=== PATIENT | female | born 2000 | race Caucasian/White ===

== ENCOUNTER 2023-07-03 14:46 | Emergency (ER) | payer OTHER, SELFPAY ==
[2023-07-03 14:48] VITALS: BP 112/56; PULSE 86; RESP 16; TEMP 36.9; O2SAT 98; BMI 28.3
--- NOTE | 2023-07-03 15:11 | CT_ITS ---
FINAL REPORT CLINICAL HISTORY: severe generalized abd pain; recent ovarian tumor FINDINGS: CT OF THE ABDOMEN AND PELVIS WITH CONTRAST Axial CT images of the abdomen and pelvis were obtained after the administration of iv contrast. Coronal reformatted images were also obtained and reviewed.This study was performed with techniques to keep radiation doses as low as reasonably achievable (ALARA). Individualized dose reduction techniques using automated exposure control or adjustment of mA and/or kV according to the patient's size were employed. Abdomen: The lung bases are clear. The heart is normal in size. The liver has an unremarkable appearance, without evidence of mass or biliary ductal dilatation. There is mild nonspecific gallbladder wall thickening. The spleen is unremarkable. No adrenal mass is present. The pancreas has an unremarkable appearance. The kidneys are normal, without evidence of mass or hydronephrosis. The aorta is normal in caliber. There is no free fluid or adenopathy. No mass or abnormal fluid collection is seen. Pelvis: The appendix is normal. The urinary bladder is unremarkable. There is a 3.2 cm, presumed, left ovarian cyst. Postoperative changes are seen in the pelvis. There is a small amount of free fluid which may be physiologic or reactive. There is no adenopathy. There is no evidence of bowel obstruction. IMPRESSION: No evidence of acute intra-abdominal process. Reviewed, Interpreted and Dictated by Rojas Hutson III, MD Transcribed by Bre Pepper Authenticated and [facility]
--- OUTSIDE RECORDS SUMMARY | 2023-07-03 15:25 | XMS_ITS | Continuity of Care Document ---
Author Name Unknown Address [address] [place], [place] [id number] Organization [facility] Phone Care Team Providers Care Developmental Services Worker Name Role Phone LOPEZ, KAUSHIK E Unavailable Unavailable LOPEZ, KAUSHIK E Admitting Unavailable LOPEZ, KAUSHIK E Primary Attending Unavailable NO, FAMILY P Primary Care ALLERGIES AND ADVERSE REACTIONS ALLERGIES AND ADVERSE REACTIONS Code System Allergy Substance Adverse Reaction Date Reaction (Severity) Comment Status Reported By Updated By No Known Allergies [id number] on May 21, 2023 6:02:31 AM [facility] FAMILY HISTORY RELATION: Father Status: LIVING SNOMED-CT Diagnosis Age At Onset [id number] Diabetes mellitus MEDICATIONS HOME MEDICATIONS Status RXNORM ND Medication Dose Route Frequency Dates Comments Reported By Updated By Active FreeT extMe d NORCO 5-325 MG 1.0 TAB BY MOUTH Q6HPRN Last Dose: PAIN SCALE 4 - 6 [id number] on May 21, 2023 6:02:32 AM [facility] Active 548496 14692 18845 0 polyethylene glycol (MIRALAX) 3350 PK 17.0 GM BY MOUTH DAILYPRN Last Dose: FOR CONSTIPATI ON [id number] on May 21, 2023 6:02:32 AM [facility] DISCHARGE MEDICATIONS Status RXNORM NDC Medication Dose Route Frequency Dates Comments Physician Updated By No Discharge Medication Info rmation Available INPATIENT MEDICATIONS Status RXNORM ND Medication Dose Route Frequency Rat e Quantity Dates Comments Physician Updated By Shawna inued [phone] ACETAMINOPH EN EXTRA STRENGTH 500 MG TABS 500.0 MG BY MOUTH ONE TIME ONLY Start: May 21, 2023 6:40:0 0 AM [place] End: May 21, 2023 6:15:0 0 AM [facility] LOPEZ Hancock MD INTERFAC ED on May 21, 2023 6:10:00 AM [facility] Shawna inued [id number] 4458 4072 801 fluconazole (DIFLUCAN) 100 MG TABS 100.0 MG BY MOUTH ONE TIME ONLY Start: May 21, 2023 6:40:0 0 AM UTC End: May 21, 2023 6:15:0 0 AM UTC LOPEZ Hancock MD INTERF ED on May 21, 2023 6:10:00 AM [place] SOCIAL HISTORY SOCIAL HISTORY SNOMED-CT Social History Element Description Effective Dates Offered Cessation Comment UpdatedBy [id number] Historical Tobacco smoking status Never Smoked [id number] on April 03, 2023 7:45:20 AM [place] SOCIAL HISTORY - Gender Sex: Female SOCIAL HISTORY - Status : status i nformation is not available Intention in Next Year: intention information is not available SOCIAL HISTORY - Sexual Behavior Sexual Orientation Gender Identity SNOMED-CT Description SNO MED -CT Description Activity Level No of Partners Partner Type UpdatedBy Information is not available VITAL SIGNS PATIENT VITAL SIGNS This section displays the mo st recent value for each vital sign as of May 21, 2023 7:15:05 AM [facility] Loinc Code Vital Sign Activity Date Result Updated By 8310-5 Body temperature May 21, 2023 5:51:00 AM UTC 98.1 [degF] [id number] on May 21, 2023 5:58:20 AM [place] 8462-4 Diastolic blood pressure May 21, 2023 5:51:00 AM UTC 71.0 mm[Hg] [id number] on May 21, 2023 5:58:20 AM UT 8867-4 Heart rate May 21, 2023 5:51:00 AM UTC 86 /min [id number] on May 21, 2023 5:58:20 AM [facility] 51024-6 Oxygen saturation in Arterial blood by Pulse oximetry May 21, 2023 5:51:00 AM UTC 100.0 % [id number] on May 21, 2023 5:58:20 AM [place] 9279-1 Respiratory rate May 21, 2023 5:51:00 AM UTC 16 /min [id number] on May 21, 2023 5:58:20 AM UT 8480-6 Systolic blood pressure May 21, 2023 5:51:00 AM UTC 115.0 mm[Hg] [id number] on May 21, 2023 5:58:20 AM UT PEDIATRIC GROWTH CHART - VITAL SIGNS This section displays Head C ircumference Percentile, Weight for Length Percentile and BMI Percentile Loinc Code Pediatric Measure Age (Months) Result Updat ed By No Pediatric Growth Chart Pe rcentile Information Available. HEALTH CONCERNS Problems Concern Status Health Concern problem infor mation not available. Smoking Status Status Years Used Consumed packs p er day Health Concern smoking histo ry information not available. Family History Concern Status Health Concern family histor y information not available. ENCOUNTERS ENCOUNTER INFORMATION Reason for Visit POST SURGICAL PROBLE M Admission May 21, 2023 5:41:[address] [address] Discharge May 21, 2023 6:15:00 AM UT DIS CHARGED TO HOME OR SELF CARE ENCOUNTER DIAGNOSES Notes information is not annette ilable. Code System Diagnosis Onset Date Diagnosis information is not available. ABSTRACT DIAGNOSES Code System Diagnosis Updated By Abstract Diagnosis informati on is not available. CARE TEAM Care Developmental Services Worker Role KAUSHIK MARROQUIN Referring KAUSHIK MARROQUIN Admitting KAUSHIK MARROQUIN Primary Attending FAMILY NO Primary Care CARE TEAM CARE hvac controls technician Role on Team Status Start Date End Date Update d By LPOEZ Hancock MD Referring normal May 20 5:47:39 AM UT May 21, 2023 6:15:00 AM UT [id number] on May 21, 2023 5:47:39 AM UT LOPEZ Hancock MD Attending normal May 20 5:47:39 AM UT May 21, 2023 6:15:00 AM UT [id number] on May 21, 2023 5:47:39 AM UT LOPEZ Hancock MD Admitting normal May 20 5:47:39 AM UT May 21, 2023 6:15:00 AM UT [id number] on May 21, 2023 5:47:39 AM [facility] NO FAMILY PHYSICIAN PCP normal May 21, 2023 5:41:23 AM UT May 21, 2023 6:15:00 AM UT [id number] on May 21, 2023 5:47:39 AM [facility]
--- OUTSIDE RECORDS SUMMARY | 2023-07-03 15:25 | XMS_ITS | Continuity of Care Document ---
Author Name Unknown Address [address] [place] [phone] Organization [facility] Phone Care Team Providers Care Associate Embalmer/Funeral Director Name Role Phone GREGG ALONSO Admitting NO, FAMILY P Primary Care GREGG ALONSO Primary Attending GREGG ALONSO Unavailable [phone] ALLERGIES AND ADVERSE REACTIONS ALLERGIES AND ADVERSE REACTIONS Code System Allergy Substance Adverse Reaction Date Reaction (Severity) Comment Status Reported By Updated By No Known Allergies [id number] on May 29, 2023 3:14:58 PM UT FAMILY HISTORY RELATION: Father Status: LIVING SNOMED-CT Diagnosis Age At Onset [id number] Diabetes mellitus RESULTS Patient: KIARRA ANN Date of : [birth year] LABORATORY RESULTS ORDER 100: STREP GROUP A EIA RAPID SCREEN (LOINC: 6558-1) ORDER DATE: May 29, 2023 3:21:00 PM UTC Specimen Source: Swab Specimen Type: Swab PERFORMING LAB: [address] [id number] Result Comment: Final Result Date: May 29, 2023 3:35:00 PM UTC (TECH: MRB) LOINC TEST FLAG RESULT REFERENCE RANGE UPDA CHANTELL BY 6558-1 Streptococcus pyogen es Ag [Presence] in Unspecified specimen by Immunoassay N NEGATIVE NEGATIVE May 3:35:00 PM UTC (TECH: MRB) 98152-2 Internal control result N PASS PASS May 29, 2023 3:35:00 PM UTC (TECH: MRB) LABORATORY NARRATIVE RESULTS Information is not available RADIOLOGY RESULTS Information is not available PATHOLOGY NARRATIVE RESULTS Information is not available MICROBIOLOGY RESULTS No Micro Labs/Results Exist for Patient BLOOD ADMIN RESULTS Information is not available TREATMENT PLAN DISCHARGE MEDICATIONS Status RXNORM Medication Dose Route Frequency Dates Comments U pdated By Patient discharge medication information is not available. PATIENT OPEN ORDERS Code System Description Frequency Occurrences Priority Start Date Ordering Physician Updated By 626-2 LOINC Bacteria identified in Throat by Culture ONE TIME 0 Routine May 29, 2023 3:35:0 0 PM UT CELESTE Morse MD DSRULE on May 29, 2023 3:35:00 PM [facility] SCHEDULED PROCEDURES Code System Description Status Scheduled Date Upd ated By Patient scheduled procedure information is not available. MEDICATIONS HOME MEDICATIONS Status RXNORM NDC Medication Dose Route Frequency Dates Comments Reported By Updated By Active BraydonT extMe d NORCO 5-325 MG 1.0 TAB BY MOUTH Q6HPRN Last Dose: PAIN SCALE 4 - 6 [id number] on May 29, 2023 3:14:59 PM UT Active 470109 77573 62734 0 polyethylene glycol (MIRALAX) 3350 PK 17.0 GM BY MOUTH DAILYPRN Last Dose: FOR CONSTIPATI ON [id number] on May 29, 2023 3:15:01 PM UT DISCHARGE MEDICATIONS Status RXNORM NDC Medication Dose Route Frequency Dates Comments Physician Updated By No Discharge Medication Info rmation Available INPATIENT MEDICATIONS Status RXNORM NDC Medication Dose Route Frequency Rat e Quantity Dates Comments Physician Updated By No Inpatient Medication Info rmation Available SOCIAL HISTORY SOCIAL HISTORY SNOMED-CT Social History Element Description Effective Dates Offered Cessation Comment UpdatedBy [id number] Historical Tobacco smoking status Never Smoked [id number] on April 03, 2023 7:45:20 AM [facility] SOCIAL HISTORY - Gender Sex: Female SOCIAL [...] for each vital sign as of May 29, 2023 5:33:04 PM [facility] Loinc Code Vital Sign Activity Date Result Updated By 8310-5 Body temperature May 29, 2023 3:01:00 PM UT 98.7 [degF] [id number] on May 29, 2023 3:11:55 PM UT 8462-4 Diastolic blood pressure May 29, 2023 4:32:00 PM UT 63.0 mm[Hg] [id number] on May 29, 2023 4:33:26 PM [facility] 8867-4 Heart rate May 29, 2023 4:32:00 PM UTC 80 /min [id number] on May 29, 2023 4:33:26 PM [facility] 27768-4 Oxygen saturation in Arterial blood by Pulse oximetry May 29, 2023 4:32:00 PM UTC 99.0 % [id number] on May 29, 2023 4:33:26 PM [facility] 9279-1 Respiratory rate May 29, 2023 4:32:00 PM UTC 16 /min [id number] on May 29, 2023 4:33:26 PM UT 8480-6 Systolic blood pressure May 4:32:00 PM UTC 100.0 mm[Hg] [id number] on May 29, 2023 4:33:26 PM [facility] PEDIATRIC GROWTH CHART - VITAL SIGNS This [...] available. ENCOUNTERS ENCOUNTER INFORMATION Reason for Visit SORE THROAT Admission May 29, 2023 2:51:[address] [address] Discharge May 29, 2023 4:33:00 PM [facility] DI SCHARGED TO HOME OR SELF CARE ENCOUNTER DIAGNOSES Notes information is not annette ilable. Code System Diagnosis Onset Date Diagnosis information is not available. ABSTRACT DIAGNOSES Code System Diagnosis Updated By Abstract Diagnosis informati on is not available. CARE TEAM Care Associate Embalmer/Funeral Director Role GREGG ALONSO Admitting FAMILY NO Primary Care GREGG ALONSO Primary Attending GREGG ALONSO Referring CARE TEAM CARE arts administrator or manager Role on Team Status Start Date End Date Update d By CELESTE ALMANZA Referring normal May 29, 2023 3:25:25 PM UT May 29, 2023 4:33:00 PM [facility] [id number] on May 29, 2023 3:25:25 PM [facility] CELESTE ALMANZA Attending normal May 29, 2023 3:25:25 PM UT May 29, 2023 4:33:00 PM [facility] [id number] on May 29, 2023 3:25:25 PM [facility] CELESTE ALMANZA Admitting normal May 29, 2023 3:25:24 PM [facility] May 29, 2023 4:33:00 PM [facility] [id number] on May 29, 2023 3:25:25 PM [facility] NO FAMILY PHYSICIAN PCP normal May 2:51:29 PM [facility] May 29, 2023 4:33:00 PM [facility] [id number] on May 29, 2023 3:25:25 PM [facility]
--- OUTSIDE RECORDS SUMMARY | 2023-07-03 15:25 | XMS_ITS | Continuity of Care Document ---
Author Name Unknown Address [address], [place] [id number] Organization [facility] Phone Care Team Providers Care Assembly Instructions Writer Name Role Phone LOPEZ, KAUSHIK E Unavailable Unavailable LOPEZ, KAUSHIK E Admitting Unavailable LOPEZ, KAUSHIK E Primary Attending Unavailable NO, FAMILY P Primary Care ALLERGIES AND ADVERSE REACTIONS ALLERGIES AND ADVERSE REACTIONS Code System Allergy Substance Adverse Reaction Date Reaction (Severity) Comment Status Reported By Updated By No Known Allergies [id number] on May 21, 2023 6:02:31 AM [facility] FAMILY HISTORY RELATION: Father Status: LIVING SNOMED-CT Diagnosis Age At Onset [id number] Diabetes mellitus MEDICATIONS HOME MEDICATIONS Status RXNORM ND Medication Dose Route Frequency Dates Comments Reported By Updated By Active FreeT extMe d NORCO 5-325 MG 1.0 TAB BY MOUTH Q6HPRN Last Dose: PAIN SCALE 4 - 6 [id number] on May 21, 2023 6:02:32 AM [facility] Active 440825 51538 56679 0 polyethylene glycol (MIRALAX) 3350 [address] 17.0 GM BY MOUTH DAILYPRN Last Dose: FOR CONSTIPATI ON [id number] on May 21, 2023 6:02:32 AM [facility] DISCHARGE MEDICATIONS Status RXNORM NDC Medication Dose Route Frequency Dates Comments Physician Updated By No Discharge Medication Info rmation Available INPATIENT MEDICATIONS Status RXNORM ND Medication Dose Route Frequency Rat e Quantity Dates Comments Physician Updated By Shawna inued [phone] ACETAMINOPH EN EXTRA STRENGTH 500 MG TABS 500.0 MG BY MOUTH ONE TIME ONLY Start: May 21, 2023 6:40:0 0 AM UT End: May 21, 2023 6:15:0 0 AM [facility] LOPEZ Hancock MD INTERFAC ED on May 21, 2023 6:10:00 AM [facility] Shawna inued [id number] 2253 4072 801 fluconazole (DIFLUCAN) 100 MG TABS 100.0 MG BY MOUTH ONE TIME ONLY Start: May 21, 2023 6:40:0 0 AM UTC End: May 21, 2023 6:15:0 0 AM UTC LOPEZ Hancock MD INTERF ED on May 21, 2023 6:10:00 AM UT SOCIAL HISTORY SOCIAL HISTORY SNOMED-CT Social History Element Description Effective Dates Offered Cessation Comment UpdatedBy [id number] Historical Tobacco smoking status Never Smoked [id number] on April 03, 2023 7:45:20 AM UT [...] for each vital sign as of May 23, 2023 3:46:37 PM UT Loinc Code Vital Sign Activity Date Result Updated By 8310-5 Body temperature May 21, 2023 5:51:08 AM UTC 98.1 [degF] [id number] on May 22, 2023 6:15:24 AM UT 8462-4 Diastolic blood pressure May 21, 2023 5:51:08 AM UTC 71.0 mm[Hg] [id number] on May 22, 2023 6:15:24 AM UTC 8867-4 Heart rate May 21, 2023 5:51:08 AM UTC 86 /min [id number] on May 22, 2023 6:15:[place] [address]-8 Oxygen saturation in Arterial blood by Pulse oximetry May 21, 2023 5:51:08 AM UTC 100.0 % [id number] on May 22, 2023 6:15:24 AM UT 9279-1 Respiratory rate May 21, 2023 5:51:08 AM UTC 16 /min [id number] on May 22, 2023 6:15:24 AM UT 8480-6 Systolic blood pressure May 21, 2023 5:51:08 AM UTC 115.0 mm[Hg] [id number] on May 22, 2023 6:15:24 AM UT PEDIATRIC GROWTH CHART - VITAL [...] Admission May 21, 2023 5:41:[address] [address] Discharge May 21, 2023 6:15:00 AM UT DIS CHARGED TO HOME OR SELF CARE ENCOUNTER DIAGNOSES Notes information is not annette ilable. Code System Diagnosis Onset Date Diagnosis information is not available. ABSTRACT DIAGNOSES Code System Diagnosis Updated By R21 ICD10 RASH AND OTHER N ONSPECIFIC SKIN ERUPTION [id number] on May 23, 2023 3:46:18 PM UT B37.2 ICD10 CANDIDIASIS OF SKIN AND NAIL [id number] on May 23, 2023 3:46:18 PM UT F17.290 ICD10 NICOTINE DEPENDE NCE, OTHER TOBACCO PRODUCT, UNCOMPLICATED [id number] on May 23, 2023 3:46:18 PM UT Z98.890 ICD10 OTHER SPECIFIED POSTPROCEDUR AL STATES [id number] on May 23, 2023 3:46:18 PM UT CARE TEAM Care Assembly Instructions Writer Role KAUSHIK MARROQUIN Referring KAUSHIK MARROQUIN Admitting KAUSHIK MARROQUIN Primary Attending FAMILY NO Primary Care CARE TEAM CARE gang supervisor Role on Team Status Start Date End Date Update d By LOPEZ Hancock MD Referring normal May 20 5:47:39 AM UT May 21, 2023 4:00:00 AM UT [id number] on May 21, 2023 5:47:39 AM [facility] LOPEZ Hancock MD Attending normal May 20 5:47:39 AM UT May 21, 2023 4:00:00 AM UT [id number] on May 21, 2023 5:47:39 AM [facility] LOPEZ Hancock MD Admitting normal May 20 5:47:39 AM UT May 21, 2023 4:00:00 AM UT [id number] on May 21, 2023 5:47:39 AM UTC NO FAMILY PHYSICIAN PCP normal May 21, 2023 5:41:23 AM [facility] May 21, 2023 4:00:00 AM [facility] [id number] on May 21, 2023 5:47:39 AM [facility]
--- OUTSIDE RECORDS SUMMARY | 2023-07-03 15:25 | XMS_ITS | Continuity of Care Document ---
Author Name Unknown Address [address] [place] [phone] Organization [facility] Phone Care Team Providers Care Internet Designer Name Role Phone GREGG ALONSO Admitting [phone] NO, FAMILY P Primary Care GREGG ALONSO Primary Attending GREGG ALONSO Unavailable ALLERGIES AND ADVERSE REACTIONS ALLERGIES AND ADVERSE REACTIONS Code System Allergy Substance Adverse Reaction Date Reaction (Severity) Comment Status Reported By Updated By No Known Allergies [id number] on May 29, 2023 3:14:58 PM UTC FAMILY HISTORY RELATION: Father Status: LIVING SNOMED-CT Diagnosis Age At Onset [id number] Diabetes mellitus RESULTS Patient: KIARRA ANN Date of : [birth year] LABORATORY RESULTS ORDER 100: STREP GROUP A EIA RAPID SCREEN (LOINC: 6558-1) ORDER DATE: May 29, 2023 3:21:00 PM UTC Specimen Source: Swab Specimen Type: Swab PERFORMING LAB: [address] [id number] Result Comment: Final Result Date: May 29, 2023 3:35:00 PM UTC (TECH: MRB) LOINC TEST FLAG RESULT REFERENCE RANGE UPDA CHANTELL BY 6558-1 Streptococcus pyogen es Ag [Presence] in Unspecified specimen by Immunoassay N NEGATIVE NEGATIVE May 3:35:00 PM UTC (TECH: MRB) 28398-6 Internal control result N PASS PASS May 29, 2023 3:35:00 PM UTC (TECH: MRB) LABORATORY NARRATIVE RESULTS Information is not available RADIOLOGY RESULTS Information is not available PATHOLOGY NARRATIVE RESULTS Information is not available MICROBIOLOGY RESULTS ORDER 200: CULTURE THROAT (L OINC: 626-2) ORDER DATE: May 29, 2023 3:35:00 PM UTC PERFORMING LAB: [facility] [address] [facility] [id number] Specimen Source: Specimen Type: Result Comment: June 01, 2023 11:01:00 AM UTC (TECH: Instructure) Scant alpha hemolytic strep colony Final Result Date: June 01, 2023 11:09:00 AM UTC (TECH: opentabsM) ISOLATE #1 Organism: Streptococcus pneumoniae Result Comment: Final Result Date: June 01, 2023 11:09:00 AM UTC (TECH: Instructure) [facility] ANTIBIOTIC ABBY TYPE VAL[place] B Y 89753-7 Amox/K Clav 0.25 Systemic S May 11:09:00 AM UTC (TECH: Instructure) 36-4 Azithromycin <= 0.25 Systemic S May 182023 11:09:00 AM UTC (TECH: Instructure) 68780-4 Cefaclor <= 0.5 Systemic S June 01, 2023 11:09:00 AM UTC (TECH: Instructure) 43951-6 Cefepime <= 0.25 Systemic S June 01, 2023 11:09:00 AM UTC (TECH: Instructure) 108-1 Cefotaxime <= 0.25 Systemic S June 01, 2023 11:09:00 AM UTC (TECH: Instructure) 67557-4 Ceftriaxone <= 0.25 Systemic S May 11:09:00 AM UTC (TECH: Instructure) 37263-4 Cefuroxime <= 0.25 Systemic S June 01, 2023 11:09:00 AM UTC (TECH: Instructure) 41459-8 Chloramphenicol <= 1.0 Systemic S Apr2023 11:09:00 AM UTC (TECH: Instructure) 04330-0 Clindamycin <= 0.06 Systemic S May 11:09:00 AM UTC (TECH: Instructure) 11835-9 Erythromycin <= 0.06 Systemic S May 182023 11:09:00 AM UTC (TECH: Instructure) 41309-2 Levofloxacin <= 0.25 Systemic S May 182023 11:09:00 AM UTC (TECH: opentabsM) Meropenem <= 0.06 Systemic S June 01, 2023 11:09:00 AM UTC (TECH: Instructure) 60462-1 Penicillin <= 0.03 Systemic S June 01, 2023 11:09:00 AM UT (TECH: Instructure) 66808-9 Tetracycline <= 0.5 Systemic S May 182023 11:09:00 AM UT (TECH: Instructure) 516-5 Trimeth/Sulfa 0.7 Systemic S June 01, 2023 11:09:00 AM UT (TECH: Instructure) 06103-0 Vancomycin <= 0.12 Systemic S June 01, 2023 11:09:00 AM UT (TECH: Instructure) BLOOD ADMIN RESULTS Information is not available MEDICATIONS HOME MEDICATIONS Status RXNORM NDC Medication Dose Route Frequency Dates Comments Reported By Updated By Anabella eduardo NORCO 5-325 MG 1.0 TAB BY MOUTH Q6HPRN Last Dose: PAIN SCALE 4 - 6 [id number] on May 29, 2023 3:14:59 PM UT Active 214755 30335 62998 0 polyethylene glycol (MIRALAX) 3350 PK 17.0 GM BY MOUTH DAILYPRN Last Dose: FOR CONSTIPATI ON [id number] on May 29, 2023 3:15:01 PM UT [...] Description Effective Dates Offered Cessation Comment UpdatedBy [id number] Historical Tobacco smoking status Never Smoked [id number] on April 03, 2023 7:45:20 AM UT [...] value for each vital sign as of June 02, 2023 11:33:42 AM UT Loinc Code Vital Sign Activity Date Result Updated By 8310-5 Body temperature May 29, 2023 3:01:37 PM UT 98.7 [degF] [id number] on May 30, 2023 4:33:53 PM UTC 54320-2 Body weight Measured May 29 4:33:55 PM UTC 80.739 kg (178.0 lb) [id number] on May 30, 2023 4:33:55 PM UTC 8462-4 Diastolic blood pressure May 29, 2023 4:32:46 PM UTC 63.0 mm[Hg] [id number] on May 30, 2023 4:33:55 PM UTC 8867-4 Heart rate May 29, 2023 4:32:46 PM UTC 80 /min [id number] on May 30, 2023 4:33:55 PM UTC 08158-6 Oxygen saturation in Arterial blood by Pulse oximetry May 29, 2023 4:32:46 PM UTC 99.0 % [id number] on May 30, 2023 4:33:55 PM UTC 9279-1 Respiratory rate May 29, 2023 4:32:46 PM UTC 16 /min [id number] on May 30, 2023 4:33:55 PM UTC 8480-6 Systolic blood pressure May 29, 2023 4:32:46 PM UTC 100.0 mm[Hg] [id number] on May 30, 2023 4:33:55 PM UTC PEDIATRIC GROWTH CHART - VITAL SIGNS This [...] THROAT Admission May 29, 2023 2:51:00 PM UTC [address] [id number] Discharge May 29, 2023 4:33:00 PM UTC DI SCHARGED TO HOME OR SELF CARE ENCOUNTER DIAGNOSES Notes information is not annette ilable. Code System Diagnosis Onset Date Diagnosis information is not available. ABSTRACT DIAGNOSES Code System Diagnosis Updated By [email or web address] ICD10 ACUTE PHARYNGITIS, UNSPECIFI ED [id number] on June 02, 2023 11:33:18 AM UTC R09.89 ICD10 OTHER SPECIFIED SYMPTOMS AND SIGNS INVOLVING THE CIRCULATORY AND RESPIRATORY SYSTEMS [id number] on June 02, 2023 11:33:18 AM UT J06.0 ICD10 ACUTE LARYNGOPHARYNGITIS PQE 7261 on June 02, 2023 11:33:18 AM [facility] F17.210 ICD10 NICOTINE DEPENDE NCE, CIGARETTES, UNCOMPLICATED [id number] on June 02, 2023 11:33:18 AM [place] E66.9 ICD10 OBESITY, UNSPECIFIED [id number] on June 02, 2023 11:33:18 AM [facility] Z68.31 ICD10 BODY MASS INDEX [BMI] 31.0-3 1.9, ADULT [id number] on June 02, 2023 11:33:18 AM [facility] CARE TEAM Care Internet Designer Role GREGG ALONSO Admitting FAMILY NO Primary Care GREGG ALONSO Primary Attending GREGG ALONSO Referring CARE TEAM CARE cloth boil off machine operator Role on Team Status Start Date End Date Update d By CELESTE ALMANZA Referring normal May 29, 2023 3:25:25 PM UT May 29, 2023 4:00:00 AM UT [id number] on May 29, 2023 3:25:25 PM [facility] CELESTE ALMANZA Attending normal May 29, 2023 3:25:25 PM [facility] May 29, 2023 4:00:00 AM UT [id number] on May 29, 2023 3:25:25 PM [facility] CELESTE ALMANZA Admitting normal May 29, 2023 3:25:24 PM [facility] May 29, 2023 4:00:00 AM UT [id number] on May 29, 2023 3:25:25 PM [facility] NO FAMILY PHYSICIAN PCP normal May 2:51:29 PM UT May 29, 2023 4:00:00 AM UT [id number] on May 29, 2023 3:25:25 PM [facility]
[2023-07-03 15:26] LABS: Basophils # 0.1 K/mm3 (0-0.2); Basophils % 1.2 % (0.1-2.0); Eosinophils % 0.9 % (0.1-12.0); Lymphocytes # 2.4 K/mm3 (0.7-4.5); Lymphocytes % 47.6 % (10-50); Mean Corpuscular HGB Conc 31.4 g/dL (31.8-35.4); Mean Corpuscular Hemoglobin 25.1 pg (27.0-31.2); Mean Corpuscular Volume 79.8 fl (81-99); Mean Platelet Volume 8.2 fl (7.4-10.4); Monocytes # 0.3 K/mm3 (0.1-1.0); Neutrophils # 2.2 K/mm3 (1.8-7.8); Neutrophils % 44.3 % (37.0-80.0); Platelet Count 355 K/mm3 (142-424); Red Blood Count 4.38 M/mm3 (4.20-5.40); Red Cell Distribution Width 16.7 % (11.5-17.5)
[2023-07-03 15:29] LABS: Microscopic, Urine URINE MICROSCOPIC (MICROSCOPIC)
[2023-07-03 15:37] LABS: Appearance,Urine CLEAR (Clear); Bilirubin,Urine Negative (Negative); Blood, Urine 2+ (Negative); Color,Urine YELLOW (Yellow); Glucose,Urine (UA) Negative (Negative); Ketones,Urine Negative (Negative); Leukocyte Esterase,Urine Negative (Negative); Nitrate,Urine Negative (Negative); PH,Urine 6.5 (5.0-8.5); Protein,Urine Negative (Negative)
--- NOTE | 2023-07-03 15:38 | ED_ITS ---
Discharge Plan Disposition Patient Disposition: Home, Self-Care Condition: Good Prescriptions Prescriptions: New nystatin 100,000 unit/gram cream 1 applic topical BID Qty: 15 0RF sulfamethoxazole-trimethoprim [Bactrim DS] 800-160 mg tablet 1 tab PO BID 10 Days Qty: 20 0RF cephalexin 500 mg capsule 500 mg PO BID 10 Days Qty: 20 0RF Referrals Follow up/Referrals: Provider,Referral, [Primary Care Provider] - See instructions Activity Restrictions/Add. Instructions Additional Instructions/Restrictions: You were evaluated in the emergency department today. 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 Follow-up closely with your surgeon who performed the surgery so that we can assess your wound and make sure that it heals well. Return to the emergency department for new or worsening symptoms. Take Tylenol and ibuprofen at home as needed for pain. 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 She states that got worse today, and she had pain similar to the time that she went to the hospital for the second time. On medical record review, this was the time she went in with concern for peritonitis and she had an ex lap that did not demonstrate any concerns for bowel perforation. This is on review of medical records from [facility]. She states she is also had nausea, but no fevers, vomiting, changes in bowel movements, or other concerns. No urinary symptoms noted. 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 At that time, exam was reassuring and labs are reassuring as well. Related Data Previous Rx's Medication Instructions Recorded cephalexin 500 mg capsule 500 mg PO BID 10 days #20 caps 07/03/23 nystatin 100,000 unit/gram topical 1 applic topical BID #15 grams 07/03/23 cream sulfamethoxazole 800 1 tab PO BID 10 days #20 tabs 07/03/23 mg-trimethoprim 160 mg tablet (Bactrim DS) Allergies Allergy/AdvReac Type Severity Reaction Status Date / Time No Known Allergies Allergy Verified 07/03/23 17:52 [facility] Disclaimer: The information contained in this section may have been updated after the patient was seen, as this information can be updated by other users. Social History Smoking Status: Current some day smoker alcohol intake: never current occupational status: employed Travel in the last 8 weeks: None ROS Obtained: Yes All systems reviewed & no additional complaints except as documented Physical Exam General General appearance: alert and in no apparent distress Head Head exam: atraumatic and normocephalic Eye Eye exam: Present normal appearance, PERRL and EOMI ENT ENT exam: Present normal exam, normal oropharynx, mucous membranes moist and normal external ear exam Neck Neck exam: Present normal inspection, full ROM and trachea midline; Absent tenderness Chest Chest inspection: Present normal inspection and symmetric chest wall rise; Absent tenderness Respiratory Respiratory exam: Present normal lung sounds bilaterally; Absent respiratory distress, wheezes, stridor or accessory muscle use Cardiovascular Cardiovascular exam: Present regular rate and normal rhythm Abdominal Exam Abdominal exam: Present soft, tenderness (Generalized) and other (Umbilical moisture, skin irritation, and breakdown from a very tiny serous oozing area of her midline abdominal incision.); Absent distention, guarding, rebound or rigidity Extremities Exam Extremities exam: Present normal inspection, full ROM and normal capillary refill; Absent tenderness or edema Back Exam Back exam: Present normal inspection and full ROM; Absent tenderness Neurological Exam Neurological exam: Present alert, oriented X3, CN II-XII intact and normal gait; Absent motor sensory deficit Psychiatric Psychiatric exam: Present normal affect and normal mood Skin Skin exam: Present warm and dry Medical Decision Making Medical Records Medical records reviewed: Yes I reviewed the patient's medical records. Mc Inquiry Pt receiving controlled substance: No Vital Signs: 07/03/23 14:48 07/03/23 18:05 Temperature 98.4 F 97.9 F Temperature Source Oral Oral Pulse Rate 72 Pulse Rate [Right] 86 Respiratory Rate 16 14 Blood Pressure 107/62 L Blood Pressure [Right Arm] 112/56 L Blood Pressure Mean [Right Arm] 74 Blood Pressure Source Automatic Cuff Blood Pressure Source [Right Arm] Automatic Cuff Blood Pressure Position Sitting 02 Sat by Pulse Oximetry 98 Oxygen Delivery Method Room Air Room Air Lab Data Lab results reviewed: Yes I reviewed the patient's lab results. Lab Results 07/03/23 15:13: WBC 5.0, RBC 4.38, Hgb 11.0 L, Hct 35.0 L, MCV 79.8 L, MCH 25.1 L, MCHC 31.4 L, RDW 16.7, Plt Count 355, MPV 8.2, Neut % (Auto) 44.3, Lymph % (Auto) 47.6, [place] % (Auto) 6.0, Eos % (Auto) 0.9, Baso % (Auto) 1.2, Neut # (Auto) 2.2, Lymph # (Auto) 2.4, [place] # (Auto) 0.3, Eos # (Auto) 0.0, Baso # (Auto) 0.1, Sodium 139, Potassium 3.9, Chloride 106, Carbon Dioxide 27, Anion Gap 9.9, BUN 8, Creatinine 0.50 L, Estimated GFR 154, Est GFR ( Amer) 187, Glucose 84, Lactate 1.0, Calcium 9.0, Total Bilirubin 0.5, AST 32, ALT 46, Alkaline Phosphatase 80, Total Protein 8.3 H, Albumin 4.0, Globulin 4.3 H, A lbumin/Globulin Ratio 0.9 L, Lipase 57, Serum HCG, Qual Negative 07/03/23 15:22: Urine Color Yellow, Urine Appearance Clear, Urine pH 6.5, Ur Specific [place] 1.020, Urine Protein Negative, Urine Glucose (UA) Negative, Urine Ketones Negative, Urine Blood 2+, Urine Nitrate Negative, Urine Bilirubin Negative, Urine Urobilinogen 1.0, Ur Leukocyte Esterase Negative, Urine RBC 3-5, Urine WBC Occasional, Ur Squamous Epith Cells 3-5, Urine Bacteria Trace 07/03/23 15:13 07/03/23 15:13 Orders (Tests/Meds): ED MEDICATIONS Discontinued Medications Generic Name Dose Route Start Last Admin Trade Name Deyvi PRN Reason Stop Dose Admin Acetaminophen 1,000 mg 07/03/23 15:14 07/03/23 16:10 Acetaminophen 1,000mg/100ml Vial IV 07/03/23 15:15 1,000 mg ONCE ONE Administration Cephalexin HCl 500 mg 07/03/23 17:41 07/03/23 17:58 Cephalexin 500mg Capsule PO 07/03/23 17:42 500 mg ONCE ONE Administration Lactated Ringer's 1,000 mls @ 999 mls/hr 07/03/23 15:14 07/03/23 16:10 Lactated Ringer's 1000 Ml Bag IV 07/03/23 16:14 999 mls/hr .Q1H1M ONE Administration Iopamidol 75 ml 07/03/23 15:59 07/03/23 16:00 Iopamidol-370 (76%);100ml Bottle IV 07/03/23 16:00 75 ml ONCE ONE Administration Ketorolac Tromethamine 15 mg 07/03/23 15:14 07/03/23 16:10 Ketorolac 30mg/Ml Vial IV 07/03/23 15:15 15 mg ONCE ONE Administration Ondansetron HCl 4 mg 07/03/23 15:14 07/03/23 16:10 Ondansetron 4mg/2ml Vial IV 07/03/23 15:15 4 mg ONCE ONE Administration Sodium Chloride 10 ml 07/03/23 15:59 07/03/23 16:00 Sodium Chloride 0.9% 10ml Syr (Rad Only) IV 07/03/23 16:00 10 ml ONCE ONE Administration Trimethoprim/Sulfamethoxazole 1 each 07/03/23 17:41 07/03/23 17:58 Sulfa/Trimethoprim 1 Tablet PO 07/03/23 17:42 1 each ONCE ONE Administration ORDERS Category Date Time Status CT abdomen pelvis w con Stat Cat Scan 07/03/23 15:11 Completed Complete Blood Count Auto Diff Stat Lab 07/03/23 15:13 Completed Comprehensive Metabolic Panel Stat Lab 07/03/23 15:13 Completed Lactic Acid Stat Lab 07/03/23 15:13 Completed Lipase Stat Lab 07/03/23 15:13 Completed Serum [HCG Qualitative, Serum] Stat Lab 07/03/23 15:13 Completed Urinalysis and Microscopic Stat Lab 07/03/23 15:22 Completed Medical Decision Narrative: In summary, this patient is a 22-year-old female presenting to the Emergency Department for evaluation of generalized abdominal pain in the setting of 2 recent extensive abdominal surgeries. Differential diagnoses considered include but are not limited to abdominal wall cellulitis, postoperative wound infection, colitis, peritonitis, postoperative intra-abdominal infection, cystitis. Ruling out the most morbid conditions drove assessment. I reviewed patient's past medical records and noted extensive surgical history to [facility] as per [facility]. On exam, the patient is well-appearing. She does have a small area in her umbilicus severe incision that is oozing serous fluid and skin breakdown associated with this is secondary to the moisture this in her umbilicus. She does not have any significant surrounding erythema or warmth. She has generalized tenderness but abdominal exam is otherwise benign. Workup included CBC, CMP, lipase, lactic acid, test, urinalysis, and CT abdomen pelvis with IV contrast. She was given a bolus of IV fluids as well as IV Toradol, acetaminophen, and Zofran for symptomatic improvement. I independently interpreted CT scan prior to the radiologist read and noted abdominal wall inflammation and stranding without obvious abscess. Please see their read for final interpretation. Labs were obtained that demonstrated no acute concerning abnormalities at this time. I called radiology and had an indirect discussion with the radiologist with regard to the patient's CT imaging, as they did not comment on her abdominal wall. They noted that it looks like she has phlegmon with fat stranding and thickening of her soft tissue, however they noted that she does not have any discrete abscess or fluid collection.. On reassessment, patient had good improvement after administration of interventions above. She is resting comfortably. Given this, feel that she is appropriate for discharge home with prescriptions for Bactrim and Keflex to treat abdominal wall infection. She is also given prescription for nystatin cream, as she has a lot of moisture and skin breakdown on her abdominal wall. She was given instructions for close follow-up with her general surgeon. She was given strict return precautions and was discharged after all questions were answered. Critical Care Critical Care Time Critical Care Time: No
[2023-07-03 15:39] LABS: HCG Qualitative, Serum Negative (Negative)
[2023-07-03 15:40] LABS: Alanine Aminotransferase 46 U/L (12-78); Albumin/Globulin Ratio 0.9 (1.1-1.8); Alkaline Phosphatase 80 U/L (38-126); Anion Gap 9.9 mEq/L (5-15); Aspartate Amino Transferase 32 U/L (14-36); Bilirubin,Total 0.5 mg/dl (0.2-1.3); Blood Urea Nitrogen 8 mg/dl (7-17); Carbon Dioxide 27 mmol/L (22.0-30.0); Chloride 106 mmol/L (98-107); Estimated Glomerular Filt Rate 154 ml/min (>60); GFR (African American) 187 ML/MIN (>60); Globulin 4.3 g/dL (1.3-3.2); Glucose 84 mg/dl (74-100); Lipase 57 U/L (23-300); Potassium 3.9 mmoL/L (3.5-5.1); Sodium 139 mmol/L (136-145); Total Protein,Serum 8.3 g/dl (6.3-8.2)
[2023-07-03] MEDS: IOPAMIDOL-370 (76%);100ML BOTTLE 75 ML IV (16:00)
[2023-07-03] MEDS: SODIUM CHLORIDE 0.9% 10ML SYR (RAD ONLY) 10 ML IV (16:00)
[2023-07-03 16:06] LABS: Bacteria,Urine Trace /lpf; WBC,Urine Occasional #/hpf (0-3)
[2023-07-03] MEDS: ACETAMINOPHEN 1,000MG/100ML VIAL 1000 MG IV (16:10)
[2023-07-03] MEDS: KETOROLAC 30MG/ML VIAL 15 MG IV (16:10)
[2023-07-03] MEDS: ONDANSETRON 4MG/2ML VIAL 4 MG IV (16:10)
[2023-07-03] MEDS: LACTATED RINGERS 1000ML 1,000 ML 999 ML IV (16:10)
[2023-07-03] MEDS: SULFA/TRIMETHOPRIM 1 TABLET 1 EACH PO (17:58)
[2023-07-03] MEDS: cephALEXin 500MG CAPSULE 500 MG PO (17:58)
[2023-07-03 18:05] VITALS: BP 107/62; PULSE 72; RESP 14; TEMP 36.6; O2SAT 99
== END 2023-07-03 18:06 | disposition home or self-care (01) ==
PROVIDERS: Emergency Provider Emergency Medicine
DX: L03.311 Cellulitis of abdominal wall (principal); F17.210 Nicotine dependence, cigarettes, uncomplicated
CPT/HCPCS: 74177; 80053; 81001; 83605; 83690; 84703; 85025; 96361; 96374; 96375; 99284; J0131; J2405; Q9967

== ENCOUNTER 2023-07-31 17:12 | Emergency (ER) | payer OTHER, SELFPAY ==
[2023-07-31] VITALS (7 sets, daily range): BP systolic 96–112; BP diastolic 60–75; PULSE 72–83; RESP 14–18; TEMP 36.8; O2SAT 99–100; BMI 29.2
--- NOTE | 2023-07-31 17:17 | ED_ITS ---
Discharge Plan Disposition Patient Disposition: Home, Self-Care Condition: Good Chief Complaint: Abdominal Pain Prescriptions Prescriptions: No Action nystatin 100,000 unit/gram cream 1 applic topical BID Qty: 15 0RF sulfamethoxazole-trimethoprim [Bactrim DS] 800-160 mg tablet 1 tab PO BID 10 Days Qty: 20 0RF cephalexin 500 mg capsule 500 mg PO BID 10 Days Qty: 20 0RF Referrals Follow up/Referrals: Provider,Referral, MD [Primary Care Provider] - See instructions Activity Restrictions/Add. Instructions Additional Instructions/Restrictions: Please start taking MiraLAX 1 capful a day until you have at least 1 soft bowel movement a day. You may increase to 2 a day if no success within 48 hours. Clinical Impressions Clinical Impression: Abdominal pain, acute Instructions Patient Instructions: DI for Acute Abdominal Pain Discharge ED Provider: Ghassan Livingston General Adult HPI <JON Saul - Last Filed: 07/31/23 19:33> General Chief complaint: Abdominal Pain Stated complaint: abdomin pain Time Seen by Provider: 07/31/23 17:16 History of Present Illness HPI narrative: Patient presents for acute abdominal pain. 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 She had a right nephrectomy salpingectomy omentumectomy at the [facility]. She subsequently underwent oratory laparotomy on postoperative day 12 [facility] as well that did not show any new findings on operation. Since that time patient states that she has had 5 previous emergency room visits at different facilities for recurrent abdominal pain for which no cause has been found according to her. Patient states she was at work and began having low to mid acute abdominal pain that does not radiate. She denies fever chills hemoptysis hematochezia melena vomiting diarrhea but does endorse nausea. Related Data Previous Rx's Medication Instructions Recorded cephalexin 500 mg capsule 500 mg PO BID 10 days #20 caps 07/03/23 nystatin 100,000 unit/gram topical 1 applic topical BID #15 grams 07/03/23 cream sulfamethoxazole 800 1 tab PO BID 10 days #20 tabs 07/03/23 mg-trimethoprim 160 mg tablet (Bactrim DS) Allergies Allergy/AdvReac Type Severity Reaction Status Date / Time No Known Allergies Allergy Verified 07/03/23 17:52 <Ghassan Livingston MD - Last Filed: 07/31/23 17:32> History of Present Illness HPI narrative: Stella Nazario is a 22 yo who presented on POD#12 from an RSO/omentectomy for 30 cm ovarian mass with worsening abdominal pain. Workup notable for pneumoperitoneum, leukocytosis to 16 with lactate of 3. General surgery was consulted and shared decision made to proceed with exploratory laparotomy. The operation was uncomplicated and there were no intra-abdominal abnormalities identified. See operative report for full details. Following surgery, the patient received routine post-operative care. Home medications were restarted. The patient was treated with heparin and Pepcid for DVT and GI prophylaxis, respectively. Her pain was controlled with po medications. Her diet was advanced per routine. Her vital signs and blood counts remained stable. Upon discharge, patient was tolerating po, ambulating and voiding spontaneously. She was discharged to home on POD#4 and scheduled to follow up in clinic with Dr. Brady on 05/27. Stella Nazario is a 22 y.o. female seen originally in consultation for a newly diagnosed pelvic mass and anemia. She went to a local ED with pain/constipation. Imaging revealed a large adnexal mass. She was also noted to be anemic with hgb 4. She was transfused and released. She reports her abdomen being big for awhile. She has been having increasing pain. Her friend thought it might be due to constipation. She is having a hard time standing at work. She reports she moved from [place] about 2 years ago. At that time, she had a miscarriage. She had been prescribed control pills in [place] but stopped when she moved here. She has had irregular bleeding for the past two years. ? S/p LSO/OMX/D&C followed by readmission with exlap for concern for pneumoperitoneum - though no identified cause. Final pathology/CARIS testing consistent with Granulosa Cell tumor. ? Interval History: She reports she went back to the ED (media tab) on 07/03/23 for abdominal pain that had lasted 2 days following intercourse. At the ER, she was told that she had an abdominal infection. She was given antibiotics (Cephalexin and bactrim) as well as nystatin cream. She is still taking her antibiotics, these have somewhat helped her pain. She continues to feel somewhat weak and dizzy. Regular bowel and bladder function. She is having vaginal bleeding, reports periods have always been irregular for her. She rates her pain 7/10. Also, it was noted on her CT scan in the ER that she has a 3.2cm left ovarian cyst. Patient was unaware of this and anxious at this finding. She is also very tearful today, reports she recently went through a breakup. Assessment and plan 4: labs drawn today, records requested from OSH. UA and labs reviewed, CT scan reviewed in clinic with patient. Patient was sent home on cephalexin 500 BID x 10 days as well as bactrim x 10 days BID. Also sent home with topical nystatin cream. Reports drainage from abdominal incision has improved. Afebrile. Cultured incision, scant drainage. Some redness noted. Continues to have VB, pelvic exam today 3.2 cm left ovarian cyst noted on CT. Will add on TVS to next visit. (unable to add on today). Continue to monitor at surveillance visits. [facility] <JON Saul - Last Filed: 07/31/23 19:33> [facility] Disclaimer: The information contained in this section may have been updated after the patient was seen, as this information can be updated by other users. Social History (Updated 07/03/23 @ 20:59 by Mirtha Hunter DO) Smoking Status: Former smoker alcohol intake: never current occupational status: employed Travel in the last 8 weeks: None <JON Saul - Last Filed: 07/31/23 19:33> ROS Obtained: Yes Systems reviewed as appropriate & no additional complaints except as documented Physical Exam <JON Saul - Last Filed: 07/31/23 19:33> General General appearance: alert and in no apparent distress Respiratory Respiratory exam: Present normal lung sounds bilaterally Cardiovascular Cardiovascular exam: Present regular rate and normal rhythm Abdominal Exam Abdominal exam: Present soft, tenderness (Patient has tenderness to palpation about the umbilicus but no rebound no guarding or rigidity bowel sounds are normoactive. Patient does have evidence of previous abdominal wall cellulitis that appears to be healing around the umbilical incision) and normal bowel sounds; Absent guarding or rebound Extremities Exam Extremities exam: Present normal inspection and full ROM Back Exam Back exam: Present normal inspection and full ROM; Absent tenderness Neurological Exam Neurological exam: Present alert and oriented X3 Psychiatric Psychiatric exam: Present normal affect and normal mood Skin Skin exam: Present warm, dry and normal color Lymphatic Lymphatic Findings: no adenopathy Medical Decision Making <JON Saul - Last Filed: 07/31/23 19:33> Medical Records Medical records reviewed: Yes I reviewed the patient's medical records. Mc Inquiry Pt receiving controlled substance: No Vital Signs: 07/31/23 17:22 07/31/23 17:31 07/31/23 18:00 Temperature 98.3 F Temperature Source Oral Pulse Rate 83 78 Pulse Rate [Left] 83 Respiratory Rate 14 Blood Pressure 110/65 105/65 L Blood Pressure [Right Arm] 111/69 Blood Pressure Mean [Right Arm] 83 Blood Pressure Source [Right Arm] Automatic Cuff Blood Pressure Position [Right Arm] Sitting 02 Sat by Pulse Oximetry 99 100 100 Oxygen Delivery Method Room Air Room Air 07/31/23 18:30 07/31/23 19:21 Temperature Temperature Source Pulse Rate 77 72 Pulse Rate [Left] Respiratory Rate Blood Pressure 96/60 L 98/64 L Blood Pressure [Right Arm] Blood Pressure Mean [Right Arm] Blood Pressure Source [Right Arm] Blood Pressure Position [Right Arm] 02 Sat by Pulse Oximetry 100 100 Oxygen Delivery Method Room Air Lab Data Lab results reviewed: Yes I reviewed the patient's lab results. Lab Results 07/31/23 17:31: WBC 7.5, RBC 4.76, Hgb 11.4 L, Hct 36.4 L, MCV 76.6 L, MCH 24.0 L, MCHC 31.3 L, RDW 16.4, Plt Count 307, MPV 8.3, Neut % (Auto) 65.1, Lymph % (Auto) 29.4, [place] % (Auto) 4.0, Eos % (Auto) 0.8, Baso % (Auto) 0.7, Neut # (Auto) 4.9, Lymph # (Auto) 2.2, [place] # (Auto) 0.3, Eos # (Auto) 0.1, Baso # (Auto) 0.1, Sodium 140, Potassium 3.8, Chloride 106, Carbon Dioxide 26, Anion Gap 11.8, BUN 11, Creatinine 0.70, Estimated Creat Clear 149, Estimated GFR 105, Est GFR ( Amer) 127, Glucose 82, Lactate 1.0, Calcium 9.4, Total Bilirubin 0.6, AST 23, ALT 19, Alkaline Phosphatase 57, Total Protein 8.3 H, Albumin 4.3, Globulin 4.0 H, Albumin/Globulin Ratio 1.1, Lipase 92, Serum HCG, Qual Negative 07/31/23 18:43: Urine Color Yellow, Urine Appearance Clear, Urine pH 7.0, Ur Specific [place] 1.010, Urine Protein Negative, Urine Glucose (UA) Negative, Urine Ketones Negative, Urine Blood 2+, Urine Nitrate Negative, Urine Bilirubin Negative, Urine Urobilinogen 0.2, Ur Leukocyte Esterase Negative 07/31/23 17:31 07/31/23 17:31 Orders (Tests/Meds): ED MEDICATIONS Discontinued Medications Generic Name Dose Route Start Last Admin Trade Name Freq PRN Reason Stop Dose Admin Acetaminophen 1,000 mg 07/31/23 17:20 07/31/23 17:45 Acetaminophen 1,000mg/100ml Vial IV 07/31/23 17:21 1,000 mg ONCE ONE Administration Lactated Ringer's 1,000 mls @ 999 mls/hr 07/31/23 17:20 07/31/23 17:45 Lactated Ringer's 1000 Ml Bag IV 07/31/23 18:20 999 mls/hr .Q1H1M ONE Administration Iopamidol 75 ml 07/31/23 18:21 07/31/23 18:21 Iopamidol-370 (76%);100ml Bottle IV 07/31/23 18:22 75 ml ONCE ONE Administration Ketorolac Tromethamine 15 mg 07/31/23 17:20 07/31/23 17:44 Ketorolac 30mg/Ml Vial IV 07/31/23 17:21 15 mg ONCE ONE Administration Sodium Chloride 10 ml 07/31/23 18:21 07/31/23 18:21 Sodium Chloride 0.9% 10ml Syr (Rad Only) IV 07/31/23 18:22 10 ml ONCE ONE Administration ORDERS Category Date Time Status CT abdomen pelvis w con Stat Cat Scan 07/31/23 17:26 Completed CBC w/Auto Diff [Complete Blood Count Auto Diff] Stat Lab 07/31/23 17:31 Completed CMP [Comprehensive Metabolic Panel] Stat Lab 07/31/23 17:31 Completed HCG Qualitative, Serum Stat Lab 07/31/23 17:31 Completed Lactic Acid Stat Lab 07/31/23 17:31 Completed Lipase Stat Lab 07/31/23 17:31 Completed UA [Urinalysis and Microscopic] Stat Lab 07/31/23 18:43 Received Medical Decision Narrative: In summary patient is a 22-year-old female who presents to the emergency department for evaluation of acute abdominal pain. Patient is dynamically stable upon arrival, afebrile. Physical exam is remarkable for mild diffuse abdominal tenderness but more focal around the umbilicus. There is no radiation no rigidity no rebound no guarding. Bowel sounds are normal active.. Differential diagnosis includes bowel obstruction versus bowel perforation versus constipation versus gas versus gastroenteritis versus urinary tract infection etc. Initial workup will be conducted with hematologic labs urinalysis CT scan of the abdomen pelvis. Initial interventions include crystalloid bolus Toradol Tylenol. Initial workup reviewed by me shows that her hematologic labs are nonactionable urinalysis is bland. And my informal interpretation of CT scan abdomen pelvis prior to radiology read shows no acute intra-abdominal processes. Upon repeat evaluation patient near resolution of abdominal pain after initial interventions. Given this patient is appropriate for discharge with recommendations to start MiraLAX daily to ensure smooth bowel function. Follow-up with PCP as needed. <Ghassan Livingston MD - Last Filed: 07/31/23 17:32> Vital Signs: 07/31/23 17:22 07/31/23 17:31 07/31/23 18:00 Temperature 98.3 F Temperature Source Oral Pulse Rate 83 78 Pulse Rate [Left] 83 Respiratory Rate 14 Blood Pressure 110/65 105/65 L Blood Pressure [Right Arm] 111/69 Blood Pressure Mean [Right Arm] 83 Blood Pressure Source [Right Arm] Automatic Cuff Blood Pressure Position [Right Arm] Sitting 02 Sat by Pulse Oximetry 99 100 100 Oxygen Delivery Method Room Air Room Air 07/31/23 18:30 07/31/23 19:21 Temperature Temperature Source Pulse Rate 77 72 Pulse Rate [Left] Respiratory Rate Blood Pressure 96/60 L 98/64 L Blood Pressure [Right Arm] Blood Pressure Mean [Right Arm] Blood Pressure Source [Right Arm] Blood Pressure Position [Right Arm] 02 Sat by Pulse Oximetry 100 100 Oxygen Delivery Method Room Air Lab Data Lab Results 07/31/23 17:31: WBC 7.5, RBC 4.76, Hgb 11.4 L, Hct 36.4 L, MCV 76.6 L, MCH 24.0 L, MCHC 31.3 L, RDW 16.4, Plt Count 307, MPV 8.3, Neut % (Auto) 65.1, Lymph % (Auto) 29.4, [place] % (Auto) 4.0, Eos % (Auto) 0.8, Baso % (Auto) 0.7, Neut # (Auto) 4.9, Lymph # (Auto) 2.2, [place] # (Auto) 0.3, Eos # (Auto) 0.1, Baso # (Auto) 0.1, Sodium 140, Potassium 3.8, Chloride 106, Carbon Dioxide 26, Anion Gap 11.8, BUN 11, Creatinine 0.70, Estimated Creat Clear 149, Estimated GFR 105, Est GFR ( Amer) 127, Glucose 82, Lactate 1.0, Calcium 9.4, Total Bilirubin 0.6, AST 23, ALT 19, Alkaline Phosphatase 57, Total Protein 8.3 H, Albumin 4.3, Globulin 4.0 H, Albumin/Globulin Ratio 1.1, Lipase 92, Serum HCG, Qual Negative 07/31/23 18:43: Urine Color Yellow, Urine Appearance Clear, Urine pH 7.0, Ur Specific [place] 1.010, Urine Protein Negative, Urine Glucose (UA) Negative, Urine Ketones Negative, Urine Blood 2+, Urine Nitrate Negative, Urine Bilirubin Negative, Urine Urobilinogen 0.2, Ur Leukocyte Esterase Negative Orders (Tests/Meds): ED MEDICATIONS Discontinued Medications Generic Name Dose Route Start Last Admin Trade Name Freq PRN Reason Stop Dose Admin Acetaminophen 1,000 mg 07/31/23 17:20 07/31/23 17:45 Acetaminophen 1,000mg/100ml Vial IV 07/31/23 17:21 1,000 mg ONCE ONE Administration Lactated Ringer's 1,000 mls @ 999 mls/hr 07/31/23 17:20 07/31/23 17:45 Lactated Ringer's 1000 Ml Bag IV 07/31/23 18:20 999 mls/hr .Q1H1M ONE Administration Iopamidol 75 ml 07/31/23 18:21 07/31/23 18:21 Iopamidol-370 (76%);100ml Bottle IV 07/31/23 18:22 75 ml ONCE ONE Administration Ketorolac Tromethamine 15 mg 07/31/23 17:20 07/31/23 17:44 Ketorolac 30mg/Ml Vial IV 07/31/23 17:21 15 mg ONCE ONE Administration Sodium Chloride 10 ml 07/31/23 18:21 07/31/23 18:21 Sodium Chloride 0.9% 10ml Syr (Rad Only) IV 07/31/23 18:22 10 ml ONCE ONE Administration ORDERS Category Date Time Status CT abdomen pelvis w con Stat Cat Scan 07/31/23 17:26 Completed CBC w/Auto Diff [Complete Blood Count Auto Diff] Stat Lab 07/31/23 17:31 Completed CMP [Comprehensive Metabolic Panel] Stat Lab 07/31/23 17:31 Completed HCG Qualitative, Serum Stat Lab 07/31/23 17:31 Completed Lactic Acid Stat Lab 07/31/23 17:31 Completed Lipase Stat Lab 07/31/23 17:31 Completed UA [Urinalysis and Microscopic] Stat Lab 07/31/23 18:43 Received Critical Care <JON Saul - Last Filed: 07/31/23 19:33> Critical Care Time Critical Care Time: No
--- NOTE | 2023-07-31 17:26 | CT_ITS ---
PROCEDURE INFORMATION: Exam: CT Abdomen And Pelvis With Contrast Exam date and time: 07/31/2023 6:12 PM Age: 22 years old Clinical indication: Abdominal pain; Additional info: Acute abdominal pain TECHNIQUE: Imaging protocol: Computed tomography of the abdomen and pelvis with contrast. Radiation optimization: All CT scans at this facility use at least one of these dose optimization techniques: automated exposure control; mA and/or kV adjustment per patient size (includes targeted exams where dose is matched to clinical indication); or iterative reconstruction. Contrast material: ISOVUE; Contrast volume: 75 ml; Contrast route: IV; COMPARISON: CT ABDOMEN PELVIS W CON 07/03/2023 3:53 PM FINDINGS: Lungs: Visualized lung bases are clear. Heart: Heart size normal. Esophagus: The visualized distal esophagus is largely contracted without gross abnormality. Liver: Normal contour. No mass lesions. No intrahepatic biliary ductal dilatation. Gallbladder and bile ducts: The gallbladder is contracted but otherwise unremarkable. Nondilated common bile duct. Pancreas: Normal. No inflammatory changes or ductal dilation. Spleen: Borderline mild splenomegaly measuring 13.2 cm, slightly decreased in size with no focal splenic lesions. Adrenal glands: Normal. No adrenal mass. Kidneys and ureters: No acute abnormalities. No hydronephrosis or hydroureter. No urinary tract stones are identified. Stomach and bowel: The stomach contains moderate food content but is otherwise unremarkable. The small bowel is nondilated with no gross abnormality. The mid to distal colon is largely contracted which likely contributes to the mildly thick walled appearance. This makes it difficult to exclude mild colitis. No evidence of perforation or abscess. Appendix: The appendix is normal in caliber and demonstrates no evidence of appendicitis. Intraperitoneal space: No peritoneal free fluid or air. Vasculature: No acute process. No abdominal aortic aneurysm. Lymph nodes: There are few borderline enlarged bilateral inguinal nodes which are nonspecific and unchanged. Urinary bladder: Unremarkable as visualized. Reproductive: Uterus is unremarkable. Multiple small follicles in the left ovary, within physiologic range for age. Right ovary is not identified. Bones/joints: No acute osseous abnormalities. 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 Soft tissues: Chronic midline anterior abdominal wall postoperative scarring. No acute soft tissue abnormalities. IMPRESSION: 1. No definite acute process. 2. The mid to distal colon is largely contracted which likely contributes to the mildly thick walled appearance. This makes it difficult to exclude mild colitis. No evidence of perforation or abscess. 3. Borderline mild splenomegaly, slightly decreased in size from prior scan. No focal splenic lesions. 4. Borderline enlarged inguinal nodes, unchanged. 5. Additional nonemergent findings detailed above.
[2023-07-31] MEDS: KETOROLAC 30MG/ML VIAL 15 MG IV (17:44)
[2023-07-31] MEDS: ACETAMINOPHEN 1,000MG/100ML VIAL 1000 MG IV (17:45)
[2023-07-31] MEDS: LACTATED RINGERS 1000ML 1,000 ML 999 ML IV (17:45)
[2023-07-31 17:49] LABS: Basophils # 0.1 K/mm3 (0-0.2); Basophils % 0.7 % (0.1-2.0); Eosinophils # 0.1 K/mm3 (0.0-0.4); Eosinophils % 0.8 % (0.1-12.0); Hematocrit 36.4 % (37.0-47.0); Hemoglobin 11.4 g/dL (12.2-16.2); Lymphocytes # 2.2 K/mm3 (0.7-4.5); Lymphocytes % 29.4 % (10-50); Mean Corpuscular HGB Conc 31.3 g/dL (31.8-35.4); Mean Corpuscular Volume 76.6 fl (81-99); Mean Platelet Volume 8.3 fl (7.4-10.4); Monocytes # 0.3 K/mm3 (0.1-1.0); Neutrophils # 4.9 K/mm3 (1.8-7.8); Neutrophils % 65.1 % (37.0-80.0); Platelet Count 307 K/mm3 (142-424); Red Blood Count 4.76 M/mm3 (4.20-5.40); Red Cell Distribution Width 16.4 % (11.5-17.5); White Blood Count 7.5 K/mm3 (4.8-10.8)
[2023-07-31 17:51] LABS: Chloride 106 mmol/L (98-107); Potassium 3.8 mmoL/L (3.5-5.1); Sodium 140 mmol/L (136-145)
[2023-07-31 17:53] LABS: HCG Qualitative, Serum Negative (Negative)
[2023-07-31 17:54] LABS: Alanine Aminotransferase 19 U/L (12-78); Albumin Level 4.3 g/dl (3.5-5.0); Albumin/Globulin Ratio 1.1 (1.1-1.8); Alkaline Phosphatase 57 U/L (38-126); Anion Gap 11.8 mEq/L (5-15); Aspartate Amino Transferase 23 U/L (14-36); Bilirubin,Total 0.6 mg/dl (0.2-1.3); Blood Urea Nitrogen 11 mg/dl (7-17); Calcium 9.4 mg/dl (8.4-10.2); Carbon Dioxide 26 mmol/L (22.0-30.0); Creatinine Clearance Estimated 149 mL/min (50-200); Estimated Glomerular Filt Rate 105 ml/min (>60); GFR (African American) 127 ML/MIN (>60); Glucose 82 mg/dl (74-100); Total Protein,Serum 8.3 g/dl (6.3-8.2)
[2023-07-31 17:56] LABS: Lipase 92 U/L (23-300)
[2023-07-31] MEDS: SODIUM CHLORIDE 0.9% 10ML SYR (RAD ONLY) 10 ML IV (18:21)
[2023-07-31] MEDS: IOPAMIDOL-370 (76%);100ML BOTTLE 75 ML IV (18:21)
[2023-07-31 18:52] LABS: Microscopic, Urine URINE MICROSCOPIC (MICROSCOPIC)
[2023-07-31 19:10] LABS: Appearance,Urine CLEAR (Clear); Bilirubin,Urine Negative (Negative); Blood, Urine 2+ (Negative); Color,Urine YELLOW (Yellow); Glucose,Urine (UA) Negative (Negative); Ketones,Urine Negative (Negative); Leukocyte Esterase,Urine Negative (Negative); Nitrate,Urine Negative (Negative); Protein,Urine Negative (Negative); Urobilinogen,Urine 0.2 EU/dl (0.2)
[2023-07-31 19:45] LABS: RBC,Urine Occasional #/hpf (0-3)
== END 2023-07-31 19:45 | disposition home or self-care (01) ==
PROVIDERS: Physician Assistant; Emergency Provider Emergency Medicine
DX: R10.0 Acute abdomen (principal)
CPT/HCPCS: 74177; 80053; 81001; 83605; 83690; 84703; 85025; 96361; 96374; 96375; 99285; J0131; J1885; J7120; Q9967